=== PATIENT | female | born 1990 ===

== ENCOUNTER → 2020-11-15 | Outpatient (CLI) | payer BC ==
[~2020-11-15] MED LIST: IBU600 MG PO; PRENATAL TABLET PO; TUMS500 MG
== END ==
LOC: ZCOL.LAB 08:00
DX: Z20.822 Contact with and (suspected) exposure to COVID-19 (principal)

== ENCOUNTER 2020-11-17 07:23 | Inpatient (IN) | payer BC ==
[2020-11-17] VITALS (35 sets, daily range): BP systolic 101–132; BP diastolic 54–76; PULSE 61–94; TEMP 97.7–98.6
[~2020-11-17] VITALS: Ht 175.3 cm; Wt 77.3 kg
--- NOTE | 2020-11-17 07:25 | NUR ---
0725- 39.6, G3L2 patient arrives on unit for scheduled IOL. Ambulatory to LDR4 with spouse. Oriented to room and plan of care. Changes kristofer clean gown. Resting in wedge left position. 0735- EFM explained and placed. Patient reports normal movement, and irregular contractions. Denies any LOF or VB. Consent forms explained and signed. Assessment completed. 0745- IV to left FA using clean technique. Routine labs obtained from IV site. LR infusing well. 0757- Pitocin explained and started per protocol.
[2020-11-17 08:01] LABS: BASO % 0.3 % (0.0-2.0); EOS # 0.1 (0.0-0.7); GRAN # 8.3 (1.4-6.5); GRAN % 71.3 % (42.2-75.2); HEMATOCRIT 39.1 % (37.0-47.0); HEMOGLOBIN 13.1 g/dl (12.5-16.0); LYMPH # 2.7 (1.2-3.4); LYMPH % 22.9 % (20.0-51.0); MEAN CELL VOLUME 88 fl (80.0-100.0); MEAN CORPUSCULAR HEMOGLOBIN 29 pg (27.0-31.0); MEAN CORPUSCULAR HGB CONC 34 g/dl (33.0-37.0); MEAN PLATELET VOLUME 10.8 fl (7.4-10.4); MONO # 0.5 (0.1-0.6); PLATELET COUNT 257 K/mm3 (130-400); RED BLOOD COUNT 4.47 M/mm3 (4.10-5.30); REDCELL DISTRIBUTION WIDTH-CV 12.7 % (11.5-14.5)
[2020-11-17] MEDS ORDERED: PRENATAL TABLET PO (08:06)
[2020-11-17] MEDS ORDERED: TUMS500 MG (08:06)
--- NOTE | 2020-11-17 11:55 | NUR ---
1155- Patient reports increased pressure/pain with ctx. SVE C/+1. 1156- Dr. De Los Santos notififed. See physician notification. 1202- Dr. De Los Santos at bedside for delivery. Catheter removed. Maya care provided. Patient assisted to footplates and instructed on pushing with ctx. 1206- Patient begins to push with contractions with Dr. De Los Santos at bedside. Strong maternal effort noted. Moves vertex well. 1208- Spontaneous vaginal delivery of viable female . Nares and mouth bulb suctioned by Dr. De Los Santos. Cord clamped x2 and cut by father. To mother's chest where dried and stimulated by nursery RN. Care of assumed by Miguel Shrestha RN. Pitocin paused. 1210- Spontaneous and intact delivery of placenta. Pitocin resumed at 333ml/hr per protocol. Fundus firm, midline, and bleeding minimal. Maya care provided, pads changed, and ice pack to perineum. Plan of care and safety precautions reviewed with patient and family who verbalize understanding. Denies questions or needs at this time. Resting with call light within reach.
--- NOTE | 2020-11-17 14:15 | NUR ---
Patient assisted to edge of bed. Denies dizziness or lightheadedness. Abulatory to bathroom with assist. Unable to void at this time. Maya care provided, clean gown on, and ice pack to perineum. To room 208 via WC. Oriented to PP room and plan of care. Fluids encouraged with plan to attempt void in within 2 hours. Patient without questions or needs at this time. Call light within reach.
[2020-11-18 04:00] VITALS: BP 110/66; PULSE 72; TEMP 98.1
[2020-11-18 08:20] VITALS: BP 116/52; PULSE 76; TEMP 98
[2020-11-18] MEDS ORDERED: IBU600 MG PO (08:46)
--- NOTE | 2020-11-18 10:20 | NUR ---
Initial visit; Parents thanked Offal Separator for offering congratulations and God's blessings for the of their daughter. Offal Separator thanked family for choosing [facility].
== END 2020-11-18 13:00 | disposition home or self-care (01) | DRG 807 ==
LOC: LDR 07:23 → OB 14:06
PROVIDERS: ADMIT Obstetrics & Gynecology
PROC: 10E0XZZ Delivery of Products of Conception, External Approach (ICD-10-PCS; principal; 2020-11-17)
PROC: 10907ZC Drainage of Amniotic Fluid, Therapeutic from Products of Conception, Via Natural or Artificial Opening (ICD-10-PCS; 2020-11-17)
PROC: 3E033VJ Introduction of Other Hormone into Peripheral Vein, Percutaneous Approach (ICD-10-PCS; 2020-11-17)
DX: O77.0 Labor and delivery complicated by meconium in amniotic fluid (principal); Z37.0 Single live birth; O70.0 First degree perineal laceration during delivery; Z3A.39 39 weeks gestation of pregnancy
CPT/HCPCS: J2590; J7120